=== PATIENT | male | born 1980 | race Caucasian/White ===

== ENCOUNTER 2018-04-03 18:30 | Inpatient (IN) | payer MEDICAID ==
[~2018-04-03] VITALS: Ht 175.3 cm; Wt 72.0 kg
[2018-04-03] MEDS ORDERED: SODIUM CHLORIDE 0.9% 1,000 ML IV ONE (20:15)
[2018-04-03] MEDS ORDERED: 0.9% SODIUM CHLORIDE 10 ML SYRINGE IVP PRN (20:30)
[2018-04-03] MEDS ORDERED: ACETAMINOPHEN 325 MG TABLET PO PRN (20:30)
[2018-04-03] MEDS ORDERED: CEFEPIME HCL 2 GM in DEXTROSE 5%-WATER 20 ML IV ONE (20:30)
[2018-04-03] MEDS ORDERED: AZITHROMYCIN 500 MG/NS 250 ML IV ONE (20:30)
[2018-04-03 20:33] LABS: AMPHET/METH SCREEN,URINE NEGATIVE (NEGATIVE); BARBITURATE SCREEN, URINE NEGATIVE (NEGATIVE); BENZODIAZEPINES SCREEN,URINE NEGATIVE (NEGATIVE); CANNABINOID SCREEN,URINE NEGATIVE (NEGATIVE); COCAINE SCREEN,URINE NEGATIVE (NEGATIVE); METHADONE SCREEN, URINE NEGATIVE (NEGATIVE); OPIATE SCREEN,URINE NEGATIVE (NEGATIVE); PHENCYCLIDINE SCREEN,URINE NEGATIVE (NEGATIVE)
[2018-04-03 20:40] LABS: BASOPHILS % (AUTO) 0.3 % (0.0-2.0); EOSINOPHILS % (AUTO) 0.3 % (1.0-6.0); HEMATOCRIT 34.2 % (41-53); HEMOGLOBIN 11.3 g/dL (13.5-17.5); LYMPHOCYTES # (AUTO) 2.4 K/uL (1.0-4.8); LYMPHOCYTES % (AUTO) 24.5 % (22.0-44.0); MEAN CORPUSCULAR HEMOGLOBIN 25.6 pg (26.0-34.0); MEAN CORPUSCULAR HGB CONC 32.9 G/dL (31.0-37.0); MEAN CORPUSCULAR VOLUME 78 fL (80-100); MONOCYTES # (AUTO) 1.7 K/uL (0.1-1.0); MONOCYTES % (AUTO) 17.4 % (2.0-9.0); NEUTROPHILS # (AUTO) 5.6 K/uL (1.8-7.7); NEUTROPHILS % (AUTO) 57.5 % (40.0-70.0); PLATELET COUNT (AUTO) 405 K/uL (150-450); RED BLOOD CELL COUNT(AUTO) 4.39 MIL/uL (4.50-5.90); RED CELL DISTRIBUTION WIDTH 16.2 % (11.5-14.5)
[2018-04-03 20:51] LABS: ANION GAP 8 mmol/L (8-16); CALCIUM, TOTAL 8.9 mg/dL (8.8-10.5); CARBON DIOXIDE 27 mmol/L (22-29); CHLORIDE 98 mmol/L (98-107); CREATININE 0.74 mg/dL (0.60-1.30); GLOMERULAR FILTR. RATE CALC > 60 mL/min (>60); GLUCOSE,RANDOM 119 mg/dL (70-110); POTASSIUM 4.1 mmol/L (3.5-5.1); SODIUM SERUM 133 mmol/L (136-145); UREA NITROGEN, BLOOD 18 mg/dL (7-18)
[2018-04-03 20:58] LABS: ALANINE AMINOTRANSFERASE 13 U/L (12-78); ALBUMIN 3.2 g/dL (3.4-5.0); ALKALINE PHOSPHATASE 95 U/L (46-116); ASPARTATE AMINOTRANSFERASE 13 U/L (15-37); BILIRUBIN,TOTAL 0.8 mg/dL (0.1-1.0); TOTAL PROTEIN, SERUM 9.1 g/dL (6.4-8.2)
[2018-04-03 21:40] VITALS: BP 119/66
[2018-04-03] MEDS ORDERED: *CLINICAL-CEFEPIME DOSING CLINICAL ONE (21:45)
[2018-04-03] MEDS ORDERED: IOVERSOL 320 MG/ML 100 ML VIAL ONE (21:55)
[2018-04-03] MEDS ORDERED: SODIUM CHLORIDE 0.9% 100 ML ONE (21:55)
[2018-04-03] MEDS ORDERED: BISACODYL 10 MG RECTAL RECTAL SUPPOSITORY PR PRN (22:00)
[2018-04-03] MEDS ORDERED: ONDANSETRON HCL 4 MG/2 ML VIAL IVP PRN (22:00)
[2018-04-03] MEDS ORDERED: ALBUTEROL SULFATE 2.5 MG/0.5 ML NEB SOLUTION NEB PRN (22:00)
[2018-04-03] MEDS ORDERED: IPRATROPIUM BROMIDE 0.5 MG/2.5 ML NEB SOLUTION NEB PRN (22:00)
[2018-04-03] MEDS ORDERED: VANCOMYCIN HCL 1.5 GM in DEXTROSE 5%-WATER 250 ML IV ONE (22:30)
[2018-04-03 22:34] LABS: % IRON SATURATION 4.3 % (30-44)
[2018-04-03] MEDS: GuaiFENesin SR 600 MG ER TABLET PO SCH (23:07)
[2018-04-03] MEDS: LACTOBACILLUS ACIDOPHILUS/BULGARICUS TABLET PO SCH (23:07)
[2018-04-03] MEDS: SODIUM CHLORIDE 0.9% 1,000 ML IV SCH (23:22)
[2018-04-03 23:54] LABS: FOLATE SERUM 10.1 ng/mL (5.4-)
[2018-04-04] VITALS (7 sets, daily range): BP systolic 105–124; BP diastolic 57–69
[2018-04-04 06:11] LABS: HEMATOCRIT 33.1 % (41-53); MEAN CORPUSCULAR HEMOGLOBIN 26.2 pg (26.0-34.0); MEAN CORPUSCULAR HGB CONC 33.3 G/dL (31.0-37.0); MEAN CORPUSCULAR VOLUME 79 fL (80-100); PLATELET COUNT (AUTO) 379 K/uL (150-450); RED CELL DISTRIBUTION WIDTH 16.3 % (11.5-14.5)
[2018-04-04 06:18] LABS: ALANINE AMINOTRANSFERASE 13 U/L (12-78); ALBUMIN 2.9 g/dL (3.4-5.0); ALKALINE PHOSPHATASE 89 U/L (46-116); ANION GAP 9 mmol/L (8-16); ASPARTATE AMINOTRANSFERASE 12 U/L (15-37); BILIRUBIN,TOTAL 0.9 mg/dL (0.1-1.0); CALCIUM, TOTAL 8.9 mg/dL (8.8-10.5); CARBON DIOXIDE 27 mmol/L (22-29); CHLORIDE 99 mmol/L (98-107); CREATININE 0.68 mg/dL (0.60-1.30); GLOMERULAR FILTR. RATE CALC > 60 mL/min (>60); GLUCOSE,RANDOM 132 mg/dL (70-110); POTASSIUM 4.1 mmol/L (3.5-5.1); SODIUM SERUM 135 mmol/L (136-145); TOTAL PROTEIN, SERUM 8.6 g/dL (6.4-8.2); UREA NITROGEN, BLOOD 13 mg/dL (7-18)
[2018-04-04 07:07] LABS: BAND NEUTROPHILS % (MANUAL) 3 % (0-5); BASOPHILS % (MANUAL) 1 % (0-2); EOSINOPHILS % (MANUAL) 2 % (1-6); LYMPHOCYTES % (MANUAL) 32 % (22-44); MONOCYTES % (MANUAL) 15 % (2-9); SEGMENTED NEUTROPHILS % 47 % (40-70)
[2018-04-04] MEDS: LACTOBACILLUS ACIDOPHILUS/BULGARICUS TABLET PO SCH ×2 (07:54→21:06)
[2018-04-04] MEDS: PANTOPRAZOLE SODIUM 40 MG DR TABLET PO SCH (07:54)
[2018-04-04] MEDS: GuaiFENesin SR 600 MG ER TABLET PO SCH ×2 (07:54→21:05)
[2018-04-04] MEDS: HEPARIN SODIUM,PORCINE 5,000 UNITS/ML VIAL SQ SCH ×2 (07:55→21:06)
[2018-04-04] MEDS: CEFEPIME HCL 2 GM in DEXTROSE 5%-WATER 20 ML IV SCH ×3 (07:55→22:53)
[2018-04-04] MEDS: VANCOMYCIN HCL 1.5 GM in DEXTROSE 5%-WATER 250 ML IV SCH ×3 (10:08→23:32)
[2018-04-04] MEDS: SODIUM CHLORIDE 0.9% 1,000 ML IV SCH ×2 (10:09→17:33)
[2018-04-04] MEDS: ACETAMINOPHEN 325 MG TABLET PO PRN (10:13)
[2018-04-04] MEDS: AZITHROMYCIN 500 MG/NS 250 ML IV SCH (21:05)
[2018-04-04] MEDS ORDERED: SODIUM CHLORIDE 0.9% 250 ML IV ONE (22:46)
[2018-04-05 05:27] VITALS: BP 107/63
[2018-04-05] MEDS: SODIUM CHLORIDE 0.9% 1,000 ML IV SCH ×2 (05:32→16:00)
[2018-04-05] MEDS: CEFEPIME HCL 2 GM in DEXTROSE 5%-WATER 20 ML IV SCH ×2 (05:32→15:00)
[2018-04-05 07:12] LABS: ANION GAP 6 mmol/L (8-16); CALCIUM, TOTAL 8.7 mg/dL (8.8-10.5); CARBON DIOXIDE 27 mmol/L (22-29); CHLORIDE 101 mmol/L (98-107); CREATININE 0.73 mg/dL (0.60-1.30); GLOMERULAR FILTR. RATE CALC > 60 mL/min (>60); GLUCOSE,RANDOM 125 mg/dL (70-110); POTASSIUM 3.8 mmol/L (3.5-5.1); SODIUM SERUM 134 mmol/L (136-145); UREA NITROGEN, BLOOD 11 mg/dL (7-18); VANCOMYCIN,RANDOM 19.9 mcg/mL (25.0-50.0)
[2018-04-05 07:50] VITALS: BP 111/64
[2018-04-05] MEDS: PANTOPRAZOLE SODIUM 40 MG DR TABLET PO SCH (08:27)
[2018-04-05] MEDS: GuaiFENesin SR 600 MG ER TABLET PO SCH ×2 (08:27→21:18)
[2018-04-05] MEDS: VANCOMYCIN HCL 1.5 GM in DEXTROSE 5%-WATER 250 ML IV SCH ×2 (08:27→17:13)
[2018-04-05] MEDS: HEPARIN SODIUM,PORCINE 5,000 UNITS/ML VIAL SQ SCH ×2 (08:27→21:19)
[2018-04-05] MEDS: ACETAMINOPHEN 325 MG TABLET PO PRN (10:15)
[2018-04-05 11:27] VITALS: BP 113/60
[2018-04-05] MEDS: LACTOBACILLUS ACIDOPHILUS/BULGARICUS TABLET PO SCH ×2 (11:55→21:18)
[2018-04-05 16:02] VITALS: BP 109/62
[2018-04-05 20:06] VITALS: BP 116/66
[2018-04-05] MEDS: AZITHROMYCIN 500 MG/NS 250 ML IV SCH (21:18)
[2018-04-05 23:41] VITALS: BP 103/59
[2018-04-06] MEDS: CEFEPIME HCL 2 GM in DEXTROSE 5%-WATER 20 ML IV SCH ×4 (00:13→23:57)
[2018-04-06] MEDS: VANCOMYCIN HCL 1.5 GM in DEXTROSE 5%-WATER 250 ML IV SCH ×4 (00:13→23:58)
[2018-04-06 04:00] VITALS: BP 109/61
[2018-04-06 07:10] LABS: VANCOMYCIN,RANDOM 19.7 mcg/mL (25.0-50.0)
[2018-04-06 08:00] VITALS: BP 112/63
[2018-04-06 08:48] LABS: ANION GAP 11 mmol/L (8-16); CALCIUM, TOTAL 8.8 mg/dL (8.8-10.5); CARBON DIOXIDE 23 mmol/L (22-29); CHLORIDE 101 mmol/L (98-107); CREATININE 0.64 mg/dL (0.60-1.30); GLOMERULAR FILTR. RATE CALC > 60 mL/min (>60); GLUCOSE,RANDOM 127 mg/dL (70-110); POTASSIUM 3.7 mmol/L (3.5-5.1); SODIUM SERUM 135 mmol/L (136-145); UREA NITROGEN, BLOOD 9 mg/dL (7-18)
[2018-04-06] MEDS: LACTOBACILLUS ACIDOPHILUS/BULGARICUS TABLET PO SCH ×2 (09:23→20:46)
[2018-04-06] MEDS: GuaiFENesin SR 600 MG ER TABLET PO SCH ×2 (09:24→20:46)
[2018-04-06] MEDS: PANTOPRAZOLE SODIUM 40 MG DR TABLET PO SCH (09:24)
[2018-04-06] MEDS: HEPARIN SODIUM,PORCINE 5,000 UNITS/ML VIAL SQ SCH ×2 (09:25→20:47)
[2018-04-06] MEDS: SODIUM CHLORIDE 0.9% 1,000 ML IV SCH (09:27)
[2018-04-06 11:12] VITALS: BP 115/65
[2018-04-06 16:00] VITALS: BP 114/53
[2018-04-06 20:33] VITALS: BP 117/68
[2018-04-06] MEDS: AZITHROMYCIN 500 MG/NS 250 ML IV SCH (20:46)
[2018-04-07] MEDS: SODIUM CHLORIDE 0.9% 1,000 ML IV SCH (00:06)
[2018-04-07 00:33] VITALS: BP 105/63
[2018-04-07 04:48] VITALS: BP 109/66
[2018-04-07] MEDS: CEFEPIME HCL 2 GM in DEXTROSE 5%-WATER 20 ML IV SCH ×2 (06:21→14:20)
[2018-04-07 06:48] LABS: ANION GAP 7 mmol/L (8-16); CALCIUM, TOTAL 8.8 mg/dL (8.8-10.5); CARBON DIOXIDE 26 mmol/L (22-29); CHLORIDE 103 mmol/L (98-107); CREATININE 0.67 mg/dL (0.60-1.30); GLOMERULAR FILTR. RATE CALC > 60 mL/min (>60); GLUCOSE,RANDOM 148 mg/dL (70-110); SODIUM SERUM 136 mmol/L (136-145); UREA NITROGEN, BLOOD 10 mg/dL (7-18)
[2018-04-07 07:10] VITALS: BP 107/60
[2018-04-07] MEDS: PANTOPRAZOLE SODIUM 40 MG DR TABLET PO SCH (08:29)
[2018-04-07] MEDS: HEPARIN SODIUM,PORCINE 5,000 UNITS/ML VIAL SQ SCH (08:29)
[2018-04-07] MEDS: LACTOBACILLUS ACIDOPHILUS/BULGARICUS TABLET PO SCH (08:29)
[2018-04-07] MEDS: VANCOMYCIN HCL 1.5 GM in DEXTROSE 5%-WATER 250 ML IV SCH (08:29)
[2018-04-07] MEDS: GuaiFENesin SR 600 MG ER TABLET PO SCH (08:29)
[2018-04-07] MEDS ORDERED: LEVO500 PO (10:59)
[2018-04-07] MEDS ORDERED: BENZ-51 PO (11:00)
[2018-04-07 11:34] VITALS: BP 118/68
[2018-04-07 14:57] LABS: LEGIONELLA PNEUMO AG URINE Negative (Negative); ORGANISM ID Not indicated.; S PNEUMO SOURCE Urine; STREP PNEUMONIAE AG URINE Negative (Negative); STREP.PNEUMO BODY FLUID CULT. Not Indicated
== END 2018-04-07 15:00 | disposition home or self-care (01) | DRG 720 ==
LOC: EMS 18:32 → 5N 20:30 → 6N 04-04 22:33
PROVIDERS: ADMIT Internal Medicine; ATTEND Internal Medicine
DX: A41.9 Sepsis, unspecified organism (principal); J18.9 Pneumonia, unspecified organism; E87.1 Hypo-osmolality and hyponatremia; R04.2 Hemoptysis; D50.9 Iron deficiency anemia, unspecified; F15.90 Other stimulant use, unspecified, uncomplicated; E86.1 Hypovolemia; Z87.891 Personal history of nicotine dependence; B96.1 Klebsiella pneumoniae [K. pneumoniae] as the cause of diseases classified elsewhere; Z79.899 Other long term (current) drug therapy
CPT/HCPCS: 71260; 82270; 82607; 82728; 82746; 83540; 83550; 83735; 84145; 86480; 86738; 87015; 87040; 87070; 87081; 87205; 87206; 87449; 87899; 96365; 99285; G0480; J0456; J0692; J1644; J3370; J7030; J7050; J7060